=== PATIENT | female | born 1980 | race Caucasian/White ===

== ENCOUNTER 2021-07-26 22:36 | Emergency (ER) | payer BC ==
[2021-07-26] MEDS ORDERED: Ketorolac Tromethamine 30 MG/ML VIAL ONE (22:55)
== END 2021-07-27 00:41 | disposition home or self-care (01) ==
LOC: CSHERS 22:36
DX: M79.604 Pain in right leg (principal); F17.210 Nicotine dependence, cigarettes, uncomplicated
CPT/HCPCS: 96372; J1885

== ENCOUNTER 2023-07-08 21:17 | Inpatient (IN) | payer BC ==
[2023-07-08 23:12] VITALS: BMI 48.6
[2023-07-09] MEDS ORDERED: Acetaminophen 325 MG TAB PO SCH (00:15)
[2023-07-09] MEDS ORDERED: Morphine 2 MG/ML VIAL SLOW IVP SCH (00:15)
[2023-07-09] MEDS ORDERED: Senokot S 8.6-50 MG TAB PO PRN (01:59)
[2023-07-09] MEDS ORDERED: Hydrocodone-Acetamin 15 ML UDCUP PO PRN (02:17)
[2023-07-09] MEDS: cefTRIAXone\\ROCEPHIN 2 GM in Sodium Chloride 0.9% 100 ML IVPB SCH (02:29)
[2023-07-09] MEDS: NS 0.9% w/ 20 MEQ KCL 1,000 ML/1,000 ML BAG IV SCH ×2 (02:30→12:35)
[2023-07-09] MEDS: Morphine 2 MG/ML VIAL SLOW IVP PRN ×4 (04:01→20:39)
[2023-07-09] MEDS: Acetaminophen 325 MG TAB PO PRN (04:09)
[2023-07-09 05:50] LABS: Hematocrit 38.8 % (34.9-44.5); Mean Corpuscular HGB CONC 33.5 g/dL (32.0-36.0); Mean Corpuscular Hemoglobin 28.2 pg (27.0-33.0); Mean Corpuscular Volume 84.2 fl (81.6-98.3); Mean Platelet Volume 11.9 fl (7.4-10.4); Platelet Count 332 10x3/uL (150-450); RBC Distribution Width 15.5 % (11.5-14.5); Red Blood Cell (RBC) Count 4.61 10x6/uL (3.90-5.03); White Blood Cell (WBC) Count 32.4 10x3/uL (3.5-10.5)
[2023-07-09 05:56] LABS: Anion Gap 12 mmol/L (10-20); BUN (Urea Nitrogen) 9 mg/dL (7.0-18.7); Calc. Creatinine Clearance 211 mL/min (70-130); Calcium 8.4 mg/dL (7.8-10.44); Carbon Dioxide 22 mmol/L (22-29); Chloride 103 mmol/L (98-107); Estimated GFR 96; Glucose 141 mg/dL (70-105); Magnesium 1.5 mg/dL (1.6-2.6); Potassium 3.4 mmol/L (3.5-5.1); Sodium 134 mmol/L (136-145)
[2023-07-09 06:03] LABS: MDiff Complete? YES
[2023-07-09 06:40] LABS: Platelet Adequacy Comment Appears Adequate
[2023-07-09 06:41] LABS: Microcytosis SLIGHT = 6-15 cells (100X) (0-5/hpf)
[2023-07-09 06:42] LABS: Band 8 % (5-11); Lymphocytes 13 % (21-51); Metamyelocyte 1 % (0-0); Monocytes 11 % (0-10); Neutrophil 67 % (42-75)
[2023-07-09] MEDS ORDERED: Potassium Chloride 20 MEQ in Premix 1 BAG IVPB SCH (07:30)
[2023-07-09] MEDS ORDERED: Magnesium 2 GM/50 ML(in water) 2 GM in Premix 1 BAG IVPB SCH (07:30)
[2023-07-09] MEDS ORDERED: Iopamidol 300 61% 100 ML VIAL FS ONE (10:02)
[2023-07-09] MEDS: Hydrocodone-Acetamin 15 ML UDCUP PO PRN ×3 (12:34→23:46)
[2023-07-09] MEDS ORDERED: QUEtiapine 25 MG TAB PO SCH (13:45)
[2023-07-09 13:48] LABS: Hemoglobin A1c 6.5 % (4.0-6.0)
[2023-07-09] MEDS: QUEtiapine 25 MG TAB PO SCH ×3 (20:35→23:48)
[2023-07-09] MEDS: Azithromycin 500 MG in Sodium Chloride 0.9% 250 ML 250 ML IVPB SCH (20:39)
[2023-07-10] MEDS: cefTRIAXone\\ROCEPHIN 2 GM in Sodium Chloride 0.9% 100 ML IVPB SCH (02:22)
[2023-07-10] MEDS: Morphine 2 MG/ML VIAL SLOW IVP PRN ×4 (02:23→21:04)
[2023-07-10] MEDS: NS 0.9% w/ 20 MEQ KCL 1,000 ML/1,000 ML BAG IV SCH ×4 (04:44→21:11)
[2023-07-10] MEDS ORDERED: Dextrose 50% Abboject 50 ML SYRINGE SLOW IVP PRN (08:47)
[2023-07-10] MEDS ORDERED: Glucagon 1 MG/ML KIT IM PRN (08:47)
[2023-07-10] MEDS ORDERED: Dextrose 5% in Water 1,000 ML IV PRN (08:47)
[2023-07-10] MEDS ORDERED: HumaLOG 300 UNITS/3 ML VIAL SC PRN (08:47)
[2023-07-10 09:33] LABS: Hematocrit 40.5 % (34.9-44.5); Mean Corpuscular HGB CONC 32.1 g/dL (32.0-36.0); Mean Corpuscular Volume 87.1 fl (81.6-98.3); Mean Platelet Volume 12.4 fl (7.4-10.4); Platelet Count 322 10x3/uL (150-450); Red Blood Cell (RBC) Count 4.65 10x6/uL (3.90-5.03); White Blood Cell (WBC) Count 30.5 10x3/uL (3.5-10.5)
[2023-07-10 09:37] LABS: Anion Gap 13 mmol/L (10-20); BUN (Urea Nitrogen) 8 mg/dL (7.0-18.7); Calc. Creatinine Clearance 228 mL/min (70-130); Calcium 8.9 mg/dL (7.8-10.44); Carbon Dioxide 23 mmol/L (22-29); Chloride 103 mmol/L (98-107); Estimated GFR 106; Glucose 170 mg/dL (70-105); Magnesium 2.2 mg/dL (1.6-2.6); Sodium 135 mmol/L (136-145)
[2023-07-10] MEDS: Hydrocodone-Acetamin 15 ML UDCUP PO PRN ×3 (10:05→23:17)
[2023-07-10 10:10] LABS: Band 17 % (5-11); Eosinophils 2 % (0-10); Lymphocytes 17 % (21-51); Monocytes 2 % (0-10)
[2023-07-10] MEDS ORDERED: Iopamidol 300 61% 100 ML VIAL FS ONE (10:11)
[2023-07-10 10:15] LABS: MDiff Complete? YES
[2023-07-10] MEDS: QUEtiapine 25 MG TAB PO SCH (21:01)
[2023-07-10] MEDS: Azithromycin 500 MG in Sodium Chloride 0.9% 250 ML 250 ML IVPB SCH (21:01)
[2023-07-11] MEDS: cefTRIAXone\\ROCEPHIN 2 GM in Sodium Chloride 0.9% 100 ML IVPB SCH (03:24)
[2023-07-11 03:46] LABS: Anion Gap 13 mmol/L (10-20); BUN (Urea Nitrogen) 7 mg/dL (7.0-18.7); Calc. Creatinine Clearance 253 mL/min (70-130); Carbon Dioxide 23 mmol/L (22-29); Chloride 108 mmol/L (98-107); Estimated GFR 111; Glucose 98 mg/dL (70-105); Potassium 4.1 mmol/L (3.5-5.1); Sodium 140 mmol/L (136-145)
[2023-07-11 03:57] LABS: Hemoglobin 12.4 g/dL (12.0-15.5); Mean Corpuscular HGB CONC 32.6 g/dL (32.0-36.0); Mean Corpuscular Hemoglobin 28.1 pg (27.0-33.0); Mean Platelet Volume 12.2 fl (7.4-10.4); Platelet Count 343 10x3/uL (150-450); RBC Distribution Width 15.9 % (11.5-14.5); Red Blood Cell (RBC) Count 4.42 10x6/uL (3.90-5.03); White Blood Cell (WBC) Count 20.1 10x3/uL (3.5-10.5)
[2023-07-11 04:11] LABS: MDiff Complete? YES
[2023-07-11] MEDS: Acetaminophen 325 MG TAB PO PRN (04:25)
[2023-07-11 04:48] LABS: Band 4 % (5-11); Eosinophils 2 % (0-10); Lymphocytes 23 % (21-51); Monocytes 9 % (0-10); Neutrophil 59 % (42-75); Reactive Lymphocytes 3 % (0-10)
[2023-07-11 04:52] LABS: Hypochromia SLIGHT = 6-15 cells (100X) (0-5/hpf); Microcytosis SLIGHT = 6-15 cells (100X) (0-5/hpf); Platelet Adequacy Comment Appears Adequate; Target Cells SLIGHT = 2-5 cells (100X) (0-1/hpf)
[2023-07-11] MEDS ORDERED: Bupivacaine PF 0.5% 30 ML VIAL FS PRN (12:49)
[2023-07-11] MEDS ORDERED: Lidocaine 1% w/Epinephrine 1:200K 30 ML VIAL FS PRN (12:50)
[2023-07-11] MEDS: Hydrocodone-Acetamin 15 ML UDCUP PO PRN (16:38)
[2023-07-11] MEDS: NS 0.9% w/ 20 MEQ KCL 1,000 ML/1,000 ML BAG IV SCH (16:39)
[2023-07-11] MEDS: QUEtiapine 25 MG TAB PO SCH (20:35)
[2023-07-11] MEDS: Nystatin Cream 15 GM TUBE TOP SCH (20:35)
[2023-07-11] MEDS: Azithromycin 500 MG in Sodium Chloride 0.9% 250 ML 250 ML IVPB SCH (20:35)
[2023-07-11] MEDS: Morphine 2 MG/ML VIAL SLOW IVP PRN (21:43)
[2023-07-12] MEDS: NS 0.9% w/ 20 MEQ KCL 1,000 ML/1,000 ML BAG IV SCH (00:23)
[2023-07-12] MEDS: Acetaminophen 325 MG TAB PO PRN (00:44)
[2023-07-12] MEDS ORDERED: Nicotine 14 MG PATCH TD SCH (01:00)
[2023-07-12] MEDS: cefTRIAXone\\ROCEPHIN 2 GM in Sodium Chloride 0.9% 100 ML IVPB SCH (02:33)
[2023-07-12 04:32] LABS: Anion Gap 15 mmol/L (10-20); BUN (Urea Nitrogen) 8 mg/dL (7.0-18.7); Calc. Creatinine Clearance 253 mL/min (70-130); Calcium 8.9 mg/dL (7.8-10.44); Carbon Dioxide 22 mmol/L (22-29); Chloride 107 mmol/L (98-107); Estimated GFR 111; Glucose 121 mg/dL (70-105); Potassium 3.7 mmol/L (3.5-5.1); Sodium 140 mmol/L (136-145)
[2023-07-12 04:47] LABS: Hematocrit 38.1 % (34.9-44.5); Hemoglobin 12.5 g/dL (12.0-15.5); Mean Corpuscular HGB CONC 32.8 g/dL (32.0-36.0); Mean Corpuscular Volume 85.4 fl (81.6-98.3); Mean Platelet Volume 12.4 fl (7.4-10.4); Platelet Count 399 10x3/uL (150-450); RBC Distribution Width 15.9 % (11.5-14.5); Red Blood Cell (RBC) Count 4.46 10x6/uL (3.90-5.03)
[2023-07-12 04:58] LABS: MDiff Complete? YES
[2023-07-12 05:46] LABS: Band 2 % (5-11); Lymphocytes 30 % (21-51); Monocytes 10 % (0-10); Neutrophil 57 % (42-75); Reactive Lymphocytes 1 % (0-10)
[2023-07-12 05:50] LABS: Hypochromia SLIGHT = 6-15 cells (100X) (0-5/hpf); Microcytosis SLIGHT = 6-15 cells (100X) (0-5/hpf); Platelet Adequacy Comment Appears Adequate; Target Cells SLIGHT = 2-5 cells (100X) (0-1/hpf)
[2023-07-12] MEDS: Nystatin Cream 15 GM TUBE TOP SCH (07:37)
[2023-07-12 09:43] VITALS: BP 165/69; TEMP 97.9
== END 2023-07-12 13:10 | disposition home or self-care (01) | DRG 872 ==
LOC: CSHTELE 22:53
PROVIDERS: ADMIT Family Medicine; ATTEND Internal Medicine
PROC: 0X950ZZ Drainage of Left Axilla, Open Approach (ICD-10-PCS; principal; 2023-07-12)
DX: A40.0 Sepsis due to streptococcus, group A (principal); D69.3 Immune thrombocytopenic purpura; Z68.42 Body mass index [BMI] 45.0-49.9, adult; L03.112 Cellulitis of left axilla; L02.412 Cutaneous abscess of left axilla; I10 Essential (primary) hypertension; E66.9 Obesity, unspecified; F17.210 Nicotine dependence, cigarettes, uncomplicated; J03.00 Acute streptococcal tonsillitis, unspecified; E66.01 Morbid (severe) obesity due to excess calories; R73.9 Hyperglycemia, unspecified; E87.6 Hypokalemia; E83.42 Hypomagnesemia; Z79.899 Other long term (current) drug therapy; Z90.49 Acquired absence of other specified parts of digestive tract; Z98.890 Other specified postprocedural states; Z82.49 Family history of ischemic heart disease and other diseases of the circulatory system
CPT/HCPCS: 36416; 70491; 80048; 83036; 83735; 83880; 85025; 87633; J0456; J0696; J1650; J2272; J3475; J3480; J3490; J7050; Q9967